=== PATIENT | female | born 1990 | race Caucasian/White ===

== ENCOUNTER 2018-01-29 15:28 | Inpatient (IN) | payer OTHER ==
[~2018-01-29] VITALS: Ht 162.6 cm; Wt 56.7 kg
--- NOTE | 2018-01-29 15:30 | NUR ---
PT BIBA FOR HYPERGLYCEMIA AND SOB. GLUCOSE ON ARRIVAL IS 409, PT EXHIBITS KAUSSMAUL RESPIRATION, LUNG SOUND CLEAR, O2 SAT 100% ON ROOM AIR. FRUITY ODOR DETECTED ON PT BREATH. ER MD NOTIFIED OF PT CONDITION. SAFETY PRECAUTIONS IN PLACE, WILL CONTINUE TO MONITOR
[2018-01-29 15:32] VITALS: BP 148/93
--- NOTE | 2018-01-29 15:41 | NUR ---
PT TAKEN BY EMS TO ER BED 7
[2018-01-29] MEDS ORDERED: NACL 0.9% 1,000 ML IV ONE ×4 (16:05→16:40)
[2018-01-29 16:39] LABS: BASOPHILS # (AUTO) 0.1 K/uL (0.00-0.22); BASOPHILS % (AUTO) 0.3 % (0.0-2.0); EOSINOPHILS % (AUTO) 0.2 % (0.0-4.0); HEMATOCRIT 42.6 % (36-48); HEMOGLOBIN 12.3 g/dL (12.0-16.0); LYMPHOCYTES # (AUTO) 2.3 K/uL (2.5-16.5); LYMPHOCYTES % (AUTO) 11.6 % (20.5-51.1); MEAN CORPUSCULAR HEMOGLOBIN 22 pg (27-31); MEAN CORPUSCULAR HGB CONC 29 g/dL (33-37); MEAN CORPUSCULAR VOLUME 77.7 fL (80-94); MONOCYTES # (AUTO) 0.7 K/uL (0.8-1.0); MONOCYTES % (AUTO) 3.6 % (1.7-9.3); NEUTROPHILS # (AUTO) 16.4 K/uL (1.8-7.7); NEUTROPHILS % (AUTO) 84.3 % (42.2-75.2); PLATELET COUNT (AUTO) 368 K/uL (140-450); RED BLOOD CELL COUNT(AUTO) 5.48 MIL/uL (4.20-5.40); RED CELL DISTRIBUTION WIDTH 19.8 % (11.6-13.7); WHITE BLOOD COUNT (AUTO) 19.4 K/uL (4.8-10.8)
[2018-01-29] MEDS ORDERED: ONDANSETRON 4 MG/2 ML VIAL IVP ONE (16:40)
[2018-01-29 16:58] LABS: MAGNESIUM 2.1 mg/dL (1.8-2.4)
[2018-01-29 17:04] LABS: ALBUMIN 3.4 g/dL (3.4-5.0); ANION GAP 34.9 (8-16); ASPARTATE AMINOTRANSFERASE 19 U/L (15-37); CHLORIDE 102 mmol/L (98-107); CREATININE 1.2 mg/dL (0.6-1.3); GFR ARICAN-AMERICAN 70 mL/min (>90); POTASSIUM 4.3 mmol/L (3.5-5.1); SODIUM SERUM 138 mmol/L (136-145); TOTAL BILIRUBIN 0.3 mg/dL (0.0-1.0); UREA NITROGEN, BLOOD 13 mg/dL (7-18)
[2018-01-29 17:09] LABS: CARBON DIOXIDE 5.4 mmol/L (21-32); GLUCOSE 420 mg/dL (74-106)
--- NOTE | 2018-01-29 17:10 | NUR ---
RECIEVED CRITICAL LAB, CO2 5.4 AND GLUCOSE 420. CRITICAL LAB READ BACK. DIETER CUENCA NOTIFIED.
[2018-01-29 17:13] LABS: ACETONE, SERUM TRACE (NEGATIVE)
[2018-01-29] MEDS ORDERED: INSULIN REGULAR, HUMAN 100 UNIT in NACL 0.9% 100 ML IV SCH ×2 (17:25)
[2018-01-29 17:59] LABS: APPEARANCE,URINE CLEAR (CLEAR); BILIRUBIN,URINE 1+ (NEGATIVE); BLOOD, URINE 3+ (NEGATIVE); COLOR,URINE YELLOW (YELLOW); LEUKOCYTE ESTERASE ,URINE NEGATIVE (NEGATIVE); NITRITE, URINE NEGATIVE (NEGATIVE); PH,URINE 5.5 (5.0-9.0); UGLUCOSE 3+ (NEGATIVE)
[2018-01-29 18:02] LABS: RBC,URINE TOO NUMEROUS TO COUN /HPF (0-5); WBC,URINE NONE SEEN /HPF (0-5)
--- NOTE | 2018-01-29 18:33 | NUR ---
PT DENIES PAIN OR NAUSEA AT THIS TIME. PT STILL EXPERIENCING DEEP BREATHING WITH FRUITY ODOR. LUNG SOUNDS CLEAR BILATERALLY, O2 SAT AT 100% ON ROOM AIR. SADETY PRECAUTIONS IN PLACE. WILL CONTINUE TO MONITOR.
--- NOTE | 2018-01-29 19:09 | NUR ---
PT TAKEN TO ICU BY RNS LINDSEY AND ASHLEY
--- NOTE | 2018-01-29 19:16 | NUR ---
Admited to ICU BED 8 VIA GURNEY WITH VSS. Belongings list completed. Report to ESTRELLA FERNANDES.
[2018-01-29 19:17] VITALS: BP 148/55
--- NOTE | 2018-01-29 19:17 | NUR ---
RECEIVED REPORT FROM ASHLEY FERNANDES, PT ADMITTED TO ICU 8.
--- NOTE | 2018-01-29 19:20 | NUR ---
PT AAOX4, WEAK, LETHARGIC, MOVING ALL EXTREMITIES. PERRLA +3, SINUS TACHYCARDIC 120-130S, +1 THREADY PULSES RADIAL/PEDAL. LUNGS CLEAR EVEN LABORED, RR 30-40S. ABD SOFT NON DISTENDED, PT DENIES N/V @ THIS TIME. PT VOIDING YELLOW URINE IN BEDPAN 800 ML. SKIN INTACT, COOL CLAMMY TO TOUCH. X2 PERIPHERAL IV 22G BILATERAL AC. RECEIVED PT ON INSULIN DRIP @ 7 UNITS/HR PER ER ORDER. WILL CONTINUE TO OBSERVE.
--- NOTE | 2018-01-29 19:52 | NUR ---
PAGED DR ROBINS FOR ADMITTING ORDERS, EXCHANGE STATED DR. CHAVEZ GLUTEN SETTLING TENDER. PT IN BED HR 120S RR 30-32, BP 158/66. PT DENIES N/V, AND PAIN @ THIS TIME. WILL CONTINUE TO OBSERVE.
[2018-01-29 20:00] VITALS: BP 143/85
[2018-01-29] MEDS: BLOOD GLUCOSE MONITORING 1 DEV DEV FS SCH ×4 (20:00→23:44)
[2018-01-29] MEDS ORDERED: KCL 20 MEQ/WATER INJ PREMIX 100 ML IV PRN (20:20)
[2018-01-29] MEDS ORDERED: DEXTROSE 50% 50 ML SYR IVP PRN (20:20)
[2018-01-29] MEDS ORDERED: SODIUM BICARBONATE 8.4% 50 MEQ in DEXTROSE 5% 1,000 ML IV PRN (20:20)
--- NOTE | 2018-01-29 20:30 | NUR ---
RECEIVED ADMITTING ORDERS FROM DON LYNNE REGARDING PT STATUS. PT HR 118, BP 143/85, RR 28, PT DENIES PAIN @ THIS TIME, NO OTHER ACUTE DISTRESS NOTED.
[2018-01-29] MEDS ORDERED: NACL 0.9% 1,000 ML IV SCH ×2 (20:40→21:00)
--- NOTE | 2018-01-29 20:45 | NUR ---
FATHER, ALEXEI MAXWELL @ BEDSIDE
--- NOTE | 2018-01-29 20:52 | NUR ---
RT @ BEDSIDE FOR IVÁN
[2018-01-29] MEDS ORDERED: SODIUM BICARBONATE 8.4% PFS 50 MEQ/50 ML SYR IVP ONE (21:05)
--- NOTE | 2018-01-29 21:10 | NUR ---
2109: PAGED DR CHAVEZ FOR ABG RESULTS. 2129: UPDATED DR CHAVEZ, PER ABG RESULTS GAVE X1 AMP BICARB PER DKA PROTOCOL. STATED TO GIVEN X3 AMP BICARB. STATED, CRITICAL CARE DR. JEAN BAPTISTE WILL FOLLOW. PT FOLLOWING COMMANDS AND ABLE TO VERBALIZE NEEDS/WANTS. PT RR 20-25 100% SPO2 HR 118. PT DENIES PAIN @ THIS TIME.
[2018-01-29] MEDS: INSULIN REGULAR, HUMAN 100 UNIT in NACL 0.9% 100 ML IV SCH ×2 (21:15)
[2018-01-29] MEDS: SODIUM BICARBONATE 8.4% PFS 50 MEQ/50 ML SYR IVP ONE ×2 (21:33→21:37)
[2018-01-29] MEDS ORDERED: SODIUM BICARBONATE 8.4% PFS 50 MEQ/50 ML SYR IVP PRN (21:40)
[2018-01-29 21:58] LABS: CREATININE 1.1 mg/dL (0.6-1.3)
[2018-01-29 22:00] VITALS: BP 138/86
[2018-01-29] MEDS ORDERED: SODIUM BICARBONATE 8.4% PFS 50 MEQ/50 ML SYR IVP SCH (22:00)
[2018-01-29 22:02] LABS: ANION GAP 35.7 (8-16); CARBON DIOXIDE 3.3 mmol/L (21-32)
--- NOTE | 2018-01-29 22:05 | NUR ---
PAGED DR. VALDOVINOS TO NOTIFY OF CONSULT AND TO UPDATE PT STATUS. ABG RESULTS GIVEN TO MD CUENCA STATED HE WOULD COME SEE PATIENT. WILL CONTINUE TO MONITOR.
[2018-01-29 22:08] LABS: FREE T4 (FREE THYROXINE) 1.01 ng/dL (0.76-1.46); MAGNESIUM 2.2 mg/dL (1.8-2.4); PHOSPHORUS 3.4 mg/dL (2.5-4.9); THYROID STIMULATING HORMONE 0.64 uIU/mL (0.34-3.74)
--- NOTE | 2018-01-29 23:00 | NUR ---
DR. VALDOVINOS @ BEDSIDE TALKING WITH FATHER AND PATIENT
[2018-01-29] MEDS ORDERED: POTASSIUM CHLORIDE 40 MEQ in NACL 0.9% 1,000 ML IV SCH (23:30)
[2018-01-30] VITALS (12 sets, daily range): BP systolic 115–140; BP diastolic 45–85
[2018-01-30] MEDS ORDERED: POTASSIUM CHL 40 MEQ/ D5-1/2NS 1,000 ML IV ONE (00:01)
[2018-01-30] MEDS: POTASSIUM CHL 40 MEQ/ D5-1/2NS 1,000 ML IV SCH ×5 (00:14→23:46)
[2018-01-30] MEDS: BLOOD GLUCOSE MONITORING 1 DEV DEV FS SCH ×25 (00:45→23:00)
[2018-01-30] MEDS ORDERED: ONDANSETRON 4 MG/2 ML VIAL IVP PRN (01:05)
--- NOTE | 2018-01-30 02:00 | NUR ---
LAB @ BEDSIDE PT IV TO RIGHT ANTECUBITAL ACCIDENTALLY D/C' D BY PATIENT. NEW IV STARTED TO L HAND 22 G. WILL CONTINUE TO OBSERVE.
--- NOTE | 2018-01-30 02:10 | NUR ---
PT APPEARS ANXIOUS RR 30-40, PT STATES, "I CANNOT CATCH MY BREATH." PT INSTRUCTED SLOW/DEEP BREATHING TECHNIQUE. NASAL CANNULA SETUP @ BEDSIDE FOR 2LNC. PT RR 20-25, 99% SPO2. PT THEN STATED, " I GET NERVOUS WITH NEEDLES, AND I START TO BREATH FASTER DURING LAB DRAWS." NO OTHER ACUTE DISTRESS NOTED. WILL CONTINUE TO OBSERVE
[2018-01-30 02:43] LABS: POTASSIUM 3.3 mmol/L (3.5-5.1)
[2018-01-30 02:52] LABS: MAGNESIUM 1.8 mg/dL (1.8-2.4); PHOSPHORUS 2.6 mg/dL (2.5-4.9)
[2018-01-30 02:53] LABS: ANION GAP 36.2 (8-16); CARBON DIOXIDE 3.1 mmol/L (21-32)
--- NOTE | 2018-01-30 03:15 | NUR ---
PAGED DR. VALDOVINOS, DR. CHAVEZ CALLED BACK. READ OFF RESULTS OF CO2 3.1. MD MURCIA, STATED HE WOULD UPDATE DR. VALDOVINOS. NO OTHER S/S OF ACUTE DISTRESS NOTED. WILL CONTINUE TO OBSERVE.
--- NOTE | 2018-01-30 04:00 | NUR ---
PROVIDED ORAL CARE, PT INDEPENDENTLY PERFORMED, PT USED BEDSIDE COMMODE X1 BLOOD TINGED URINE NOTED. PT DENIES SOB/CP @ THIS TIME. PT DENIES N/V. WILL CONTINUE TO OBSERVE.
--- NOTE | 2018-01-30 05:30 | NUR ---
DECREASED INSULIN DRIP TO 1 UNIT/HR FOR BS- 180
--- NOTE | 2018-01-30 07:30 | NUR ---
REPORT GIVEN TO DAY SHIFT FOR CONTINUITY OF CARE.
--- NOTE | 2018-01-30 07:50 | NUR ---
AWAKE, SLOW IN RESPONDING TO QUESTIONS. SL. GEN. WEAKNESS. IV D5 0.45% NS WITH 40 MEQ KCL INFUSING VIA LEFT AC AT 200 ML/HR. INSULIN DRIP AT I UNIT/HR INFUSING VIA LEFT HAND IV SITE. IV SITES CLEAR AND PATENT. DENIES ANY RESP. DIFFICULTY. VINE PRUNER SHOWS ST, HR 117/MIN. C/O THIRST. ICED WATER GIVEN DRANK WITHOUT ANY DIFFICULTY. NO N/V NOTED.
[2018-01-30] MEDS: INSULIN REGULAR, HUMAN 100 UNIT in NACL 0.9% 100 ML IV SCH ×4 (08:04→16:03)
--- NOTE | 2018-01-30 08:05 | NUR ---
BREAKFAST SERVED 60 GM CCHO DIET, DRANK MILK AND JUST ATE 2 SLICES OF APPLE. NO N/V NOTED.
--- NOTE | 2018-01-30 08:30 | NUR ---
REFUSED TO HAVE SCD'S ON. STATES SHE WALKS TO BEDSIDE COMMODE.
--- NOTE | 2018-01-30 09:00 | NUR ---
DR. VALDOVINOS HERE TO SEE AND EXAMINE PT. MADE AWRE OF BS READINGS. WILL KEEP PT. NPO EXCEPT WATER AND MEDS. Addendum: 01/30/18 at 1102 by Radha Gonzalez RN NOT WATER. ICE CHIPS AND MEDS.
--- NOTE | 2018-01-30 09:05 | NUR ---
REPORT GIVEN TO ESTRELLA LUCAS RN.
[2018-01-30 09:58] LABS: ANION GAP 32.2 (8-16); CREATININE 1.2 mg/dL (0.6-1.3); POTASSIUM 3.3 mmol/L (3.5-5.1)
[2018-01-30 09:59] LABS: CARBON DIOXIDE 5.1 mmol/L (21-32)
[2018-01-30 10:01] LABS: MAGNESIUM 1.7 mg/dL (1.8-2.4); PHOSPHORUS 2.6 mg/dL (2.5-4.9)
--- NOTE | 2018-01-30 11:30 | NUR ---
FATHER AT BEDSIDE. UPDATED ON PT'S CONDITION.
--- NOTE | 2018-01-30 12:45 | NUR ---
DR. ROBINS HERE TO SEE AND EXAMINE PT.
--- NOTE | 2018-01-30 13:15 | NUR ---
PER PT, SHE DOES NOT HAVE A PRIMARY PHYSICIAN. SHE HAS NOT SEEN A PHYSICIAN FOR A WHILE BUT SHE GETS HER MEDS FROM [facility]. PT'S FATHER ALSO AWARE. IMPORTANCE OF HAVING A PHYSICIAN HELP HER CONTROL HER DIABETES EXPLAINED TO BOTH FATHER AND PT.
--- NOTE | 2018-01-30 13:30 | NUR ---
ASSISTED TO BEDSIDE COMMODE. MORE STEADY AT THIS TIME VOIDED. PT HAS HER MENSTRUAL PERIOD AT THIS TIME. PERINEAL CARE DONE.
[2018-01-30] MEDS: MAG SULF 2000 MG/WATER PREMIX 50 ML IV PRN (14:24)
--- NOTE | 2018-01-30 14:25 | NUR ---
MG LEVEL 1.7. MAGNESIUM RIDER 2 GRAMS STARTED AT 25ML/HR.
[2018-01-30 15:46] LABS: ANION GAP 24.1 (8-16); CARBON DIOXIDE 10.9 mmol/L (21-32); CREATININE 1.2 mg/dL (0.6-1.3)
[2018-01-30] MEDS: KCL 20 MEQ/WATER INJ PREMIX 100 ML IV PRN (16:31)
--- NOTE | 2018-01-30 16:38 | NUR ---
DR. VALDOVINOS CALLED. UPDATED ON PT'S CONDITION AND LAB RESULTS.
[2018-01-30 18:06] LABS: BASOPHILS % (AUTO) 0.2 % (0.0-2.0); EOSINOPHILS % (AUTO) 0.1 % (0.0-4.0); HEMATOCRIT 36.1 % (36-48); HEMOGLOBIN 10.9 g/dL (12.0-16.0); LYMPHOCYTES # (AUTO) 1.3 K/uL (2.5-16.5); LYMPHOCYTES % (AUTO) 7.3 % (20.5-51.1); MEAN CORPUSCULAR HEMOGLOBIN 22 pg (27-31); MEAN CORPUSCULAR HGB CONC 30 g/dL (33-37); MEAN CORPUSCULAR VOLUME 73.5 fL (80-94); MONOCYTES # (AUTO) 1.6 K/uL (0.8-1.0); MONOCYTES % (AUTO) 8.8 % (1.7-9.3); NEUTROPHILS # (AUTO) 15.2 K/uL (1.8-7.7); NEUTROPHILS % (AUTO) 83.6 % (42.2-75.2); PLATELET COUNT (AUTO) 305 K/uL (140-450); RED BLOOD CELL COUNT(AUTO) 4.91 MIL/uL (4.20-5.40); RED CELL DISTRIBUTION WIDTH 19.2 % (11.6-13.7); WHITE BLOOD COUNT (AUTO) 18.2 K/uL (4.8-10.8)
[2018-01-30 18:17] LABS: ANION GAP 19.8 (8-16); CARBON DIOXIDE 11.5 mmol/L (21-32); CREATININE 1.1 mg/dL (0.6-1.3); POTASSIUM 3.3 mmol/L (3.5-5.1)
[2018-01-30 18:20] LABS: MAGNESIUM 2.5 mg/dL (1.8-2.4); PHOSPHORUS 1.3 mg/dL (2.5-4.9)
--- NOTE | 2018-01-30 18:30 | NUR ---
C/O PAIN OVER LT. HAND IV SITE. K RIDER INFUSING. PT ASKED FOR WET COMPRESS OVER IV SITE. APPLIED. FELT BETTER AFTER.
--- NOTE | 2018-01-30 19:30 | NUR ---
RECEIVED PT FROM DAY SHIFT, NO ACUTE DISTRESS NOTED
--- NOTE | 2018-01-30 19:45 | NUR ---
PT AAOX4, FOLLOWING COMMANDS TALKING WITH FATHER @ BEDSIDE. PT TACHYCARDIC 100S, PT DENIES CP/SOB @ THIS TIME. LUNGS CLEAR EVEN UNLABORED BILATERALLY. ABDOMEN SOFT NON DISTENDED, CURRENTLY NPO WITH ICE CHIPS. PT VOIDING WITH BEDSIDE COMMODE, BLOOD TINGED URINE NOTED, PT ON MENSES CYCLE. SKIN INTACT. PERIPHERAL IV TO R HAND 22G AND 22 G R AC NOTED. IVF D51/[id number] @ 200ML/HR RUNNING AND INSULIN DRIP RUNNING @ 2 UNITS/HR PER DKA PROTOCOL. ALARMS CHECKED AND VERIFIED. SAFETY PRECAUTIONS IN PLACE. NO OTHER S/S OF DISTRESS NOTED. WILL CONTINUE TO MONITOR.
[2018-01-30 21:45] LABS: MAGNESIUM 1.8 mg/dL (1.8-2.4); PHOSPHORUS 1.4 mg/dL (2.5-4.9)
[2018-01-30 22:30] LABS: BASOPHILS # (AUTO) 0.1 K/uL (0.00-0.22); BASOPHILS % (AUTO) 0.4 % (0.0-2.0); EOSINOPHILS % (AUTO) 0.2 % (0.0-4.0); HEMATOCRIT 38.1 % (36-48); HEMOGLOBIN 11.6 g/dL (12.0-16.0); LYMPHOCYTES # (AUTO) 1.1 K/uL (2.5-16.5); LYMPHOCYTES % (AUTO) 6.1 % (20.5-51.1); MEAN CORPUSCULAR HEMOGLOBIN 22 pg (27-31); MEAN CORPUSCULAR HGB CONC 30 g/dL (33-37); MEAN CORPUSCULAR VOLUME 73.4 fL (80-94); MONOCYTES # (AUTO) 1.6 K/uL (0.8-1.0); NEUTROPHILS # (AUTO) 15.1 K/uL (1.8-7.7); PLATELET COUNT (AUTO) 349 K/uL (140-450); RED BLOOD CELL COUNT(AUTO) 5.19 MIL/uL (4.20-5.40); RED CELL DISTRIBUTION WIDTH 19.4 % (11.6-13.7); WHITE BLOOD COUNT (AUTO) 17.9 K/uL (4.8-10.8)
[2018-01-30 22:43] LABS: ANION GAP 19.5 (8-16); CARBON DIOXIDE 14.7 mmol/L (21-32); CREATININE 1.1 mg/dL (0.6-1.3); POTASSIUM 3.2 mmol/L (3.5-5.1)
[2018-01-30 22:45] LABS: NEUTROPHILS % (AUTO) 84.3 % (42.2-75.2)
[2018-01-30 22:48] LABS: MAGNESIUM 2.3 mg/dL (1.8-2.4); PHOSPHORUS 1.2 mg/dL (2.5-4.9)
[2018-01-31] VITALS (12 sets, daily range): BP systolic 113–135; BP diastolic 68–83
--- NOTE | 2018-01-31 00:15 | NUR ---
PT HAS EYES CLOSED; AROUSABLE, BP 125/69 RR 15 98%SPO2 NO S/S OF ACUTE DISTRESS NOTED. WILL CONTINUE TO OBSERVE
[2018-01-31] MEDS: BLOOD GLUCOSE MONITORING 1 DEV DEV FS SCH ×24 (00:27→23:07)
--- NOTE | 2018-01-31 03:00 | NUR ---
BED LINEN CHANGED, PT CHANGED GOWN AND AM CARE DONE INDEPENDENTLY. VSS. NO ACUTE DISTRESS NOTED.
[2018-01-31 03:01] LABS: CARBON DIOXIDE 16.1 mmol/L (21-32); POTASSIUM 3.1 mmol/L (3.5-5.1)
[2018-01-31 03:02] LABS: MAGNESIUM 2.2 mg/dL (1.8-2.4); PHOSPHORUS 1.1 mg/dL (2.5-4.9)
[2018-01-31] MEDS: KCL 20 MEQ/WATER INJ PREMIX 100 ML IV PRN (03:13)
--- NOTE | 2018-01-31 05:00 | NUR ---
BS CHECKED 366, INSULIN DRIP ADJUSTED PER EMAR PROTOCOL TO 5 UNITS/HR. PT DENIES PAIN @ THIS TIME. VSS. WILL CONTINUE TO OBSERVE
--- NOTE | 2018-01-31 06:30 | NUR ---
SEASONAL PACKAGE HANDLER @ BEDSIDE FOR BLOOD DRAW.
[2018-01-31 07:15] LABS: ANION GAP 23.1 (8-16); CARBON DIOXIDE 10.2 mmol/L (21-32); CREATININE 1.1 mg/dL (0.6-1.3); POTASSIUM 4.3 mmol/L (3.5-5.1)
[2018-01-31 07:18] LABS: PHOSPHORUS 1.2 mg/dL (2.5-4.9)
--- NOTE | 2018-01-31 07:28 | NUR ---
RECEIVED BEDSIDE REPORT FROM MEDICAL PATHOLOGY TEACHER RN, ESTRELLA, FOR CONTINUITY OF CARE. PATIENT IS AAOX4, ABLE TO FOLLOW SIMPLE COMMANDS AND MAKE NEEDS KNOWN. SKIN IS WARM AND DRY, INTACT. SHE HAS A PERIPHERAL IV SITE TO LEFT HAND AND LEFT AC, BOTH PATENT AND ASYMPTOMATIC. PATIENT IS ON ROOM AIR, BREATHING EVEN AND UNLABORED, DENIES ANY SOB. SR ON MONITOR, BP STABLE, MOST RECENT BLOOD SUGAR IS 232, INSULIN DECREASED TO 2 UNIT. PATIENT HAS MENSTRUAL PERIOD, PER MEDICAL PATHOLOGY TEACHER RN. NO SIGNS OF DISTRESS NOTED. PATIENT DENIES ANY N, V. CALL LIGHT WITHIN REACH. WILL CONTINUE TO MONITOR
--- NOTE | 2018-01-31 07:30 | NUR ---
REPORT GIVEN TO DAY SHIFT FOR CONTINUITY OF CARE. VSS. NO ACUTE DISTRESS NOTED.
[2018-01-31 08:11] LABS: T4 (THYROXINE) 6.1 ug/dL (4.5-12.0)
[2018-01-31] MEDS: POTASSIUM CHL 40 MEQ/ D5-1/2NS 1,000 ML IV SCH ×5 (08:19→23:25)
[2018-01-31] MEDS: MAG SULF 2000 MG/WATER PREMIX 50 ML IV PRN (08:21)
--- NOTE | 2018-01-31 08:50 | NUR ---
DR. VALDOVINOS IN TO SEE PATIENT, UPDATED ON PATIENT'S CONDITION. WILL FOLLOW UP ON ANY ORDERS.
[2018-01-31] MEDS: SODIUM PHOSPHATE 15 MMOLE in NACL 0.9% 250 ML IV SCH ×2 (10:18→22:17)
[2018-01-31 10:57] LABS: ANION GAP 18.5 (8-16); CARBON DIOXIDE 15.3 mmol/L (21-32); CREATININE 0.9 mg/dL (0.6-1.3); POTASSIUM 3.8 mmol/L (3.5-5.1)
[2018-01-31 11:40] LABS: MAGNESIUM 2.1 mg/dL (1.8-2.4)
[2018-01-31 11:43] LABS: PHOSPHORUS 0.7 mg/dL (2.5-4.9)
--- NOTE | 2018-01-31 12:01 | NUR ---
PATIENT HAS BEEN SCREENED AND CATEGORIZED HIGH NUTRITION RISK. PATIENT WILL BE SEEN WITHIN 1-2 DAYS OF ADMISSION. 01/30/18 01/31/18 JEANMARIE HOLLIDAY MBA, RD
[2018-01-31] MEDS ORDERED: glargine SQ (12:44)
[2018-01-31] MEDS ORDERED: [UNRECOGNIZED DRUG - OTHER] SQ (12:44)
--- NOTE | 2018-01-31 13:10 | NUR ---
PATIENT COMPLAINING OF NAUSEA, ADMINISTERED ZOFRAN PRN IVP. PATIENT TOLERATED WELL.
--- NOTE | 2018-01-31 13:27 | NUR ---
01/31/18 RD INITIAL ASSESSMENT COMPLETED. PLEASE REFER TO NUTRITION ASSESSMENT UNDER CARE ACTIVITY FOR ESTIMATED NUTRITIONAL NEEDS. RD RECOMMENDATIONS: 1. RECOMMEND CONTINUE NPO DIET. 2. WHEN MEDICALLY CLEARED, RECOMMEND 60G CCHO DIET. 3. F/U 2-3 DAYS; HIGH RISK JEANMARIE HOLLIDAY MBA, RD
[2018-01-31 14:29] LABS: ANION GAP 15.8 (8-16); CARBON DIOXIDE 17.5 mmol/L (21-32); CREATININE 0.8 mg/dL (0.6-1.3); POTASSIUM 3.3 mmol/L (3.5-5.1)
--- NOTE | 2018-01-31 14:31 | NUR ---
DR. ROBINS IN TO SEE AND EXAMINE PATIENT, UPDATED ON PATIENT'S CONDITION. STATES TO GIVE DOSE OF INSULIN LANTUS 20 UNITS. WILL FOLLOW UP ON ANY ORDERS.
[2018-01-31] MEDS ORDERED: INSULIN LANTUS 100 UNITS/ML 10 ML VIAL SUBQ SCH (16:00)
[2018-01-31 17:54] LABS: ANION GAP 15.9 (8-16); CARBON DIOXIDE 15.4 mmol/L (21-32); POTASSIUM 3.3 mmol/L (3.5-5.1)
[2018-01-31] MEDS: INSULIN REGULAR, HUMAN 100 UNIT in NACL 0.9% 100 ML IV SCH ×2 (18:17)
--- NOTE | 2018-01-31 19:20 | NUR ---
RECEIVED REPORT FROM MORNING RN FOR CONTINUITY OF CARE. VS STABLE AT THIS TIME. PT AAOX4. ABLE TO MAKE NEEDS KNOWN. PT ABLE TO FOLLOW COMMANDS. PT DENIES ANY DISCOMFORT AT THIS TIME. NO C/O PAIN. LUNG SOUNDS CLEAR. PT IN ROOM AIR. RESPIRATIONS ARE EVEN AND UNLABORED. NO SOB NOTED. S1+S2 HEARD. SR ON MONITOR. BP WNL. PULSES ARE PALPABLE IN ALL EXTREMITIES. ABDOMEN ROUND, SOFT AND NONDISTENDED. BS ACTIVE. PT ABLE TO AMBULATE TO THE RESTROOM WITH ASSISTANCE. PT HAS LEFT HAND 22G AND LEFT AC 22G PERIPHERAL IV ACCESS THAT IS PATENT, INTACT, AND ASYMPTOMATIC. PT HAS POTASSIUM 40MEQ IN 1000ML D5 0.45% NS RUNNING AT 200ML/HR. PT CURRENTLY HAS BED KEPT AT LOWEST POSSIBLE POSITION. CALL LIGHT WITHIN REACH. WILL CONTINUE TO MONITOR PT.
--- NOTE | 2018-01-31 21:30 | NUR ---
VS STABLE. NO CHANGE IN PT CONDITION. PT STILL ON INSULIN DRIP AND BLOOD SUGAR CHECK STILL Q1H. PT DENIES ANY PAIN OR HAVING ANY DISCOMFORT AT THIS TIME. WILL CONTINUE TO MONITOR.
[2018-01-31 21:45] LABS: MAGNESIUM 1.8 mg/dL (1.8-2.4); PHOSPHORUS 1.1 mg/dL (2.5-4.9)
[2018-01-31 21:50] LABS: ANION GAP 12.8 (8-16); CARBON DIOXIDE 20.6 mmol/L (21-32); CREATININE 0.9 mg/dL (0.6-1.3); POTASSIUM 3.4 mmol/L (3.5-5.1)
--- NOTE | 2018-01-31 23:15 | NUR ---
RESPIRATIONS ARE EVEN AND UNLABORED. PT HAS NO COMPLAINS OF ANY DISCOMFORT AT THIS TIME. VS STABLE. NO S/S HYPO/HYPERGLYCEMIA NOTED
[2018-02-01] VITALS (9 sets, daily range): BP systolic 111–129; BP diastolic 64–86
[2018-02-01] MEDS: BLOOD GLUCOSE MONITORING 1 DEV DEV FS SCH ×13 (00:06→20:53)
--- NOTE | 2018-02-01 00:45 | NUR ---
PT USED THE RESTROOM AND HAD A BM. PT DENIES DIZZINESS AND LIGHTHEADEDNESS. VS STABLE. ABLE TO TOLERATE AMBULATING FROM THE BED TO THE RESTROOM. PT HOWEVER STATES THAT SHE STILL FEELS A BIT WEAK, BUT FEELING MUCH BETTER FROM ADMISSION. MACHINE STONECUTTER AT BEDSIDE TO DRAW BLOOD WELL FOR SCHEDULED LAB.
[2018-02-01 01:20] LABS: ANION GAP 16.3 (8-16); CARBON DIOXIDE 18.2 mmol/L (21-32); POTASSIUM 3.5 mmol/L (3.5-5.1)
[2018-02-01 01:29] LABS: CREATININE 0.8 mg/dL (0.6-1.3); MAGNESIUM 1.8 mg/dL (1.8-2.4); PHOSPHORUS 1.5 mg/dL (2.5-4.9)
[2018-02-01] MEDS ORDERED: POTASSIUM CHL 40 MEQ/ D5-1/2NS 1,000 ML IV ONE (02:53)
--- NOTE | 2018-02-01 03:04 | NUR ---
PT EYES ARE CLOSED. SR ON MONITOR. OXYGEN SATURATION AT 99% AND PT STILL IN ROOM AIR.
[2018-02-01] MEDS: POTASSIUM CHL 40 MEQ/ D5-1/2NS 1,000 ML IV SCH ×3 (04:50→20:34)
--- NOTE | 2018-02-01 05:15 | NUR ---
MDS NURSE AT BEDSIDE TO DRAW BLOOD.
[2018-02-01 06:25] LABS: BASOPHILS # (AUTO) 0.1 K/uL (0.00-0.22); BASOPHILS % (AUTO) 0.4 % (0.0-2.0); EOSINOPHILS # (AUTO) 0.2 K/uL (0-0.4); EOSINOPHILS % (AUTO) 1.3 % (0.0-4.0); HEMATOCRIT 34.6 % (36-48); HEMOGLOBIN 10.7 g/dL (12.0-16.0); LYMPHOCYTES # (AUTO) 3.1 K/uL (2.5-16.5); LYMPHOCYTES % (AUTO) 23.3 % (20.5-51.1); MEAN CORPUSCULAR HEMOGLOBIN 23 pg (27-31); MEAN CORPUSCULAR HGB CONC 31 g/dL (33-37); MEAN CORPUSCULAR VOLUME 73.5 fL (80-94); MONOCYTES # (AUTO) 0.9 K/uL (0.8-1.0); MONOCYTES % (AUTO) 6.7 % (1.7-9.3); NEUTROPHILS # (AUTO) 9.1 K/uL (1.8-7.7); NEUTROPHILS % (AUTO) 68.3 % (42.2-75.2); PLATELET COUNT (AUTO) 163 K/uL (140-450); RED BLOOD CELL COUNT(AUTO) 4.71 MIL/uL (4.20-5.40); RED CELL DISTRIBUTION WIDTH 19.8 % (11.6-13.7); WHITE BLOOD COUNT (AUTO) 13.3 K/uL (4.8-10.8)
[2018-02-01 06:30] LABS: ANION GAP 17.3 (8-16); CARBON DIOXIDE 18.8 mmol/L (21-32); CREATININE 0.8 mg/dL (0.6-1.3); POTASSIUM 4.1 mmol/L (3.5-5.1)
[2018-02-01 06:54] LABS: MAGNESIUM 1.8 mg/dL (1.8-2.4); PHOSPHORUS 1.8 mg/dL (2.5-4.9)
--- NOTE | 2018-02-01 07:13 | NUR ---
RECEIVED BEDSIDE REPORT FROM PLASMA PROCESSING TECHNICIAN RN, CHELSEA, FOR CONTINUITY OF CARE. PATIENT IS AAOX4, ABLE TO MAKE NEEDS KNOWN, FOLLOWS COMMANDS. SKIN IS WARM, DRY AND INTACT. SHE HAS PERIPHERAL IV SITE TO LAC AND L HAND, 22 GAUGE, ASYMPTOMATIC, PATENT. INSULIN DRIP IS RUNNING AT 2UNITS, LAST BLOOD SUGAR IS 204. PATIENT IS ABLE TO MOVE ALL EXTREMITIES, AMBULATORY WITH STEADY GAIT. PATIENT IS ON ROOM AIR, BREATHING IS EVEN AND UNLABORED. SR ON MONITOR, DENIES ANY PAIN, N, V. PER PLASMA PROCESSING TECHNICIAN RN, PATIENT WAS ABLE TO VOID IN RESTROOM AND HAD 1 BM. HOB IS 45 DEGREES, CALL LIGHT IS WITHIN REACH. NO SIGNS OF DISTRESS AT THIS TIME. WILL CONTINUE TO MONITOR
[2018-02-01 08:50] LABS: CARBON DIOXIDE 19.5 mmol/L (21-32); CREATININE 0.9 mg/dL (0.6-1.3); POTASSIUM 3.5 mmol/L (3.5-5.1)
[2018-02-01 08:54] LABS: MAGNESIUM 1.7 mg/dL (1.8-2.4); PHOSPHORUS 1.3 mg/dL (2.5-4.9)
[2018-02-01] MEDS: INSULIN LANTUS 100 UNITS/ML 10 ML VIAL SUBQ SCH (09:21)
[2018-02-01] MEDS: MAG SULF 2000 MG/WATER PREMIX 50 ML IV PRN (09:23)
--- NOTE | 2018-02-01 09:28 | NUR ---
ADMINISTERED INSULIN LANTUS 20 UNITS ORDERED. RECEIVED MG LAB OF 1.7, ADMINISTERED MG RIDER ORDERED. PATIENT TOLERATING WELL. DENIES ANY PAIN, N, V. VITALS STABLE.
--- NOTE | 2018-02-01 09:37 | NUR ---
DR. ROBINS IN TO SEE AND EXAMINE PATIENT. UPDATED ON PATIENT'S CONDITION. DISCUSSED PATIENT'S PLAN OF CARE. DR. ROBINS STATES THAT INSULIN DRIP CAN BE DISCONTINUE AND PATIENT CAN BE STARTED ON SUBQ.
[2018-02-01] MEDS ORDERED: DEXTROSE 50% 50 ML SYR IVP PRN (09:40)
[2018-02-01] MEDS ORDERED: INSULIN LISPRO 100 UNITS/ML VIAL SUBQ SCH (10:00)
--- NOTE | 2018-02-01 12:12 | NUR ---
DR. CABELLO IN TO SEE PATIENT, UPDATED ON PATIENT'S CONDITION. WILL FOLLOW UP ON ANY ORDERS.
--- NOTE | 2018-02-01 12:30 | NUR ---
PER LISA SALDAÑA TO START PATIENT ON DIABETIC DIET, PROVIDE DIABETIC EDUCATION FOR PATIENT. WILL FOLLOW UP ON ORDERS.
[2018-02-01 12:45] LABS: MAGNESIUM 2.4 mg/dL (1.8-2.4)
[2018-02-01 12:47] LABS: PHOSPHORUS 0.8 mg/dL (2.5-4.9)
[2018-02-01 12:59] LABS: ANION GAP 11.7 (8-16); CARBON DIOXIDE 20.8 mmol/L (21-32); CREATININE 0.8 mg/dL (0.6-1.3); POTASSIUM 3.5 mmol/L (3.5-5.1)
--- NOTE | 2018-02-01 13:52 | NUR ---
RECEIVED RESULTS FROM LAB, PATIENT'S PHOS IS 0.8 AND SHE IS POSITIVE FOR MRSA NARES. CALLED DR. ROBINS AND RECEIVE ORDERS FOR NEUTRA-PHOS AND MRSA PROTOCOL. PATIENT IS NOW PLACED ON CONTACT ISOLATION. PROVIDED EDUCATION ON MRSA AND CONTACT ISOLATION. PATIENT VERBALIZES UNDERSTANDING
[2018-02-01] MEDS ORDERED: SODIUM PHOS / POTASSIUM PHOS 1 PKT PDR PO SCH (14:55)
[2018-02-01] MEDS: MUPIROCIN CA NASAL 2% 1GM TUBE NS SCH (15:07)
[2018-02-01] MEDS: CHLORHEXADINE GLUC 2% CLOTH TP SCH (15:07)
--- NOTE | 2018-02-01 15:11 | NUR ---
PATIENT'S FAMILY HERE TO SEE PATIENT, UPDATED ON PATIENT'S CONDITION. EDUCATED ON MRSA NARES AND CONTACT ISOLATION. FAMILY DEMONSTRATED AND VERBALIZES UNDERSTANDING.
[2018-02-01] MEDS ORDERED: PROBIOTIC SCREEN 1 EA MISC MC PRN (15:30)
[2018-02-01] MEDS: INSULIN LISPRO SLIDING SCALE 100 UNITS/ML VIAL SUBQ PRN ×2 (16:47→20:55)
--- NOTE | 2018-02-01 17:03 | NUR ---
REMOVED PATIENT'S IV TO LEFT AC, CANNULA INTACT, APPLIED PRESSURE TO SITE AND COVERED WITH GAUZE AND TAPE. PATIENT TOLERATED WELL. NO S/S OF INFECTION TO THE SITE NOTED.
--- NOTE | 2018-02-01 18:14 | NUR ---
PATIENT'S EYES CLOSED, VITALS STABLE. NO SIGNS OF DISTRESS NOTED. DINNER AT BEDSIDE
--- NOTE | 2018-02-01 19:21 | NUR ---
ENDORSED CONTINUITY OF CARE TO DEPUTY COURT RNCHELSEA. PATIENT IS SITTING UP IN BED EATING DINNER, NO SIGNS OF DISTRESS AT THIS TIME.
--- NOTE | 2018-02-01 19:30 | NUR ---
RECEIVED REPORT FROM MORNING RN, YOLANDA, FOR CONTINUITY OF CARE. VS STABLE AT THIS TIME. AFEBRILE. PT DENIES ANY PAIN. STATES THAT SHE IS FEELING BETTER. DENIES ANY OTHER DISCOMFORT AT THIS TIME. LUNG SOUNDS CLEAR. PT IN ROOM AIR. RESPIRATIONS ARE EVEN AND UNLABORED. S1+S2 HEARD. SR ON MONITOR. ABDOMEN ROUND, SOFT AND NONDISTENDED. BS ACTIVE IN ALL QUADRANTS. PT DENIES ANY LOSS OF APPETITE. PT HAS PERIPHERAL IV ACCESS OF LEFT HAND 22G. LINE IS PATENT, INTACT, AND ASYMPTOMATIC. RECEIVED PT ON D5 0.45% NS WITH 40MEQ POTASSIUM AT 75ML/HR. SKIN IS INTACT, WARM AND DRY. CALL LIGHT WITHIN REACH. BED AT LOWEST POSSIBLE POSITION. ALL SAFETY PRECAUTIONS ARE IN PLACE.
--- NOTE | 2018-02-01 22:05 | NUR ---
PT LYING IN BED, SUPINE. EYES ARE CLOSED. RESPIRATIONS ARE EVEN AND UNLABORED. SR ON MONITOR. OXYGEN SATURATION AT 98%. NO S/S HYPER/HYPOGLYCEMIA NOTED WITH PT.
--- NOTE | 2018-02-02 00:33 | NUR ---
SR ON MONITOR. VS STABLE AT THIS TIME. NO CHANGE IN PT CONDITION. WOKE PT UP TO SEE IF SHE NEEDS ANYTHING. PT STATES SHE DOES NOT HAVE ANY CONCERNS OR NEEDS AT THIS TIME. WILL CHECK ON PT AGAIN AND WILL CONTINUE TO MONITOR.
--- NOTE | 2018-02-02 03:40 | NUR ---
VS STABLE. PT EYES ARE CLOSED. NO CHANGE IN CONDITION AT THIS TIME. NO S/S OF HYPO OF HYPERGLYCEMIA
[2018-02-02] MEDS: BLOOD GLUCOSE MONITORING 1 DEV DEV FS SCH ×2 (06:40→11:20)
[2018-02-02] MEDS: INSULIN LISPRO SLIDING SCALE 100 UNITS/ML VIAL SUBQ PRN ×2 (07:56→11:26)
[2018-02-02 08:00] VITALS: BP 115/82
--- NOTE | 2018-02-02 08:00 | NUR ---
PATIENT AWAKE, ALERT X4. LOOKS COMFORTABLE AND LYING SUPINE IN BED. SINUS RHYTHM ON MONITOR RIGHT NOW AND HEART RATE 88 BPM, BP 115/82, ON ROOM AIR SO2 97%, CLEAR BREATH SOUNDS ON ALL LUNG MARQUES, SOFT NON TENDER ABDOMEN WITH NORMAL BOWEL SOUNDS, ABLE TO AMBULATE INDEPENDENTLY TO THE REST ROOM FOR ELIMINATION, WITH D5 HALF NORMAL SALINE AT 75 ML/HR INFUSING AT LEFT HAND PERIPHERAL LINE GAUGE 22 AND SITE IS ASYMPTOMATIC. SKIN IS INTACT. BED IN LOW POSITION, CALL POMPA WITHIN REACH
[2018-02-02] MEDS: INSULIN LANTUS 100 UNITS/ML 10 ML VIAL SUBQ SCH (08:50)
--- NOTE | 2018-02-02 08:50 | NUR ---
Spoke with Stephanie and made a follow up appointment for patient to see Bruce Azul on 02/10/18Thursday at 1015. Address is at [address] [place] [phone]. Phone number . Appointment schedule given to patient with verbal understanding. Nurse of patient informed about the appointment and instructed her to give instrustions upon discharge.
[2018-02-02] MEDS: POTASSIUM CHL 40 MEQ/ D5-1/2NS 1,000 ML IV SCH (08:51)
[2018-02-02] MEDS ORDERED: SODIUM PHOS / POTASSIUM PHOS 1 PKT PDR PO SCH ×2 (09:00)
--- NOTE | 2018-02-02 09:00 | NUR ---
PATIENT WAS GIVEN APPOINTMENT SLIP FOR DR. ARCHULETA THIS FEB.10 PATIENT VERBALIZED UNDERSTANDING
--- NOTE | 2018-02-02 10:00 | NUR ---
PATIENT'S DAD AT BEDSIDE UPDATED OF PATIENT'S CONDITION AND PLAN OF CARE
[2018-02-02] MEDS ORDERED: [UNRECOGNIZED DRUG - OTHER] SQ (11:07)
--- NOTE | 2018-02-02 11:14 | NUR ---
DR. ROBINS INFORMED OF PATIENT'S LATEST BLOOD [id number] ORDERS RECEIVED BY SUZANNE FERNANDES
[2018-02-02] MEDS ORDERED: INSULIN LANTUS 100 UNITS/ML 10 ML VIAL SUBQ SCH (11:21)
[2018-02-02] MEDS ORDERED: INSULIN LISPRO 100 UNITS/ML VIAL SUBQ SCH ×2 (11:22→13:00)
--- NOTE | 2018-02-02 12:40 | NUR ---
DR. RBOINS WAS INFORMED OF PATIENT'S REPEAT BLOOD SUGAR 264. ORDERS RECEIVED PER ABILIO FERNANDES
[2018-02-02 13:17] LABS: ALBUMIN 2.4 g/dL (3.4-5.0); ANION GAP 15.5 (8-16); CARBON DIOXIDE 23.1 mmol/L (21-32); MAGNESIUM 1.8 mg/dL (1.8-2.4); PHOSPHORUS 1.5 mg/dL (2.5-4.9); POTASSIUM 3.6 mmol/L (3.5-5.1); TOTAL BILIRUBIN 0.2 mg/dL (0.0-1.0)
[2018-02-02 13:24] LABS: ANION GAP 16.1 (8-16); CARBON DIOXIDE 22.6 mmol/L (21-32); POTASSIUM 3.7 mmol/L (3.5-5.1)
[2018-02-02 13:27] VITALS: BP 130/79
--- NOTE | 2018-02-02 13:53 | NUR ---
SENT A PAGE TO DR. ROBINS TO UPDATE WITH LATEST BLOOD SUGAR. CALLED BACK AND ORDERED OK FOR D/C.
[2018-02-02 14:05] VITALS: BP 130/79
--- NOTE | 2018-02-02 14:20 | NUR ---
DISCHARGE PACKET INSTRUCTION GIVEN TO PATIENT. PATIENT ABLE TO VERBALIZE UNDERSTANDING "YES I UNDERSTAND, IT'S SELF EXPLANATORY"
[2018-02-02] MEDS: MUPIROCIN CA NASAL 2% 1GM TUBE NS SCH (14:38)
[2018-02-02] MEDS: CHLORHEXADINE GLUC 2% CLOTH TP SCH (14:39)
--- NOTE | 2018-02-02 14:55 | NUR ---
PATIENT DISCHARGED. AMBULATORY ACCOMPANIED BY FATHER. ARM BAND, IVs REMOVED-CATHETER INTACT, BELONGINGS GIVEN
== END 2018-02-02 14:55 | disposition home or self-care (01) | DRG 420 ==
LOC: MED 15:28 → MIC 18:49
PROVIDERS: ADMIT Hospitalist; ATTEND Hospitalist
DX: E10.10 Type 1 diabetes mellitus with ketoacidosis without coma (principal); E87.4 Mixed disorder of acid-base balance; E83.39 Other disorders of phosphorus metabolism; E83.42 Hypomagnesemia; E87.5 Hyperkalemia; D72.829 Elevated white blood cell count, unspecified; E86.0 Dehydration; K90.0 Celiac disease; Z79.4 Long term (current) use of insulin; Z88.0 Allergy status to penicillin
CPT/HCPCS: 36415; 36600; 71045; 80048; 80053; 81001; 82009; 82803; 82948; 83036; 83605; 83690; 83735; 84100; 84436; 84439; 84443; 84479; 85025; 87040; 87081; 87086; 93005; 96361; 96365; 96375; 99291; 99292; C1758; J1815; J2405; J3475; J3480; J7030

== ENCOUNTER 2019-07-26 06:41 | Day surgery (SDC) | payer OTHER, SELFPAY ==
[~2019-07-26] VITALS: Ht 160 cm; Wt 88.5 kg
[~2019-07-26 06:41] MED LIST: [UNRECOGNIZED DRUG - OTHER] SQ; glargine SQ
[2019-07-26] MEDS ORDERED: fentaNYL 0.05 MG/ML VIAL ONE (09:11)
[2019-07-26] MEDS ORDERED: MIDAZOLAM 2 MG/2 ML VIAL ONE (09:11)
[2019-07-26] MEDS ORDERED: diphenhydrAMINE 50 MG/ML VIAL ONE (09:11)
[2019-07-26] MEDS ORDERED: fentaNYL 0.05 MG/ML VIAL IVP ONE (10:15)
[2019-07-26] MEDS ORDERED: MIDAZOLAM 2 MG/2 ML VIAL IVP ONE (10:15)
== END 2019-07-26 10:28 | disposition home or self-care (01) ==
LOC: MDS 06:41 → MMU 06:42 → MDS 10:28
PROVIDERS: ATTEND Internal Medicine
DX: K90.0 Celiac disease (principal); K21.9 Gastro-esophageal reflux disease without esophagitis; K29.70 Gastritis, unspecified, without bleeding; E10.43 Type 1 diabetes mellitus with diabetic autonomic (poly)neuropathy
CPT/HCPCS: 36415; 43239; 81025; 82948; J2250; J3010; 88305; 88312; 88313; J1200; U0003-CS